=== PATIENT | female | born 1975 | race Two or more races ===

== ENCOUNTER 2018-04-25 13:29 | Emergency (ER) | payer SELFPAY ==
[~2018-04-25] VITALS: Ht 165.1 cm; Wt 68.0 kg
[2018-04-25 13:45] VITALS: BP 141/87
[2018-04-25] MEDS ORDERED: Acetaminophen 500mg (ES) tab ORAL ONE (14:00)
--- NOTE | 2018-04-25 14:15 | Emergency Room Report ---
History of Present Illness General Chief Complaint: Flu Like Symptoms Source: Patient Present Illness HPI 42-year-old female patient presents ER complaining of numbness in her fingers of her left hand and in her left lower extremity for the past 4 days. reports numbness in her left index finger and pinky finger, denies radiation of symptoms. Reports history of similar symptoms several years ago. Denies loss of range of motion. Denies history of diabetes. Denies fever, chest pain, shortness breath, abdominal pain. Denies recent injury or trauma. Also states that she had some palpitations about an hour ago, denies palpitations at this time. Denies fever, chest pain, shortness of breath. Denies other acute symptoms. Reports right-hand dominant. Denies difficulty with walking.contrary to triage note, patient does not complain of generalized body pain. Allergies: Coded Allergies: No Known Allergies (Unverified , 04/25/18) Patient History Past Medical History: see triage record Reviewed Nursing Documentation: PMH: Agreed; PSxH: Agreed Nursing Documentation-PMH Past Medical History: No Stated History Review of Systems All Other Systems: negative except mentioned in HPI Physical Exam Vital Signs Date Time Temp Pulse Resp B/P (MAP) Pulse Ox O2 Delivery O2 Flow Rate FiO2 04/25/18 13:32 99.0 83 16 152/98 98 Room Air 99.0 Sp02 EP Interpretation: reviewed, normal General Appearance: well appearing, no apparent distress, alert, GCS 15, non- toxic Head: normocephalic, atraumatic Eyes: bilateral eye normal inspection, bilateral eye PERRL ENT: hearing grossly normal, normal pharynx, no angioedema, normal voice, uvula midline, moist mucus membranes Neck: full range of motion Respiratory: lungs clear, normal breath sounds, no rhonchi, no respiratory distress, no accessory muscle use, no wheezing, speaking full sentences Cardiovascular #1: regular rate, rhythm, no edema Cardiovascular #2: 2+ radial (R), 2+ radial (L), 2+ dorsalis pedis (R), 2+ dorsalis pedis (L) Gastrointestinal: non tender, soft, no mass, non-distended, no guarding, no rebound Genitourinary: no CVA tenderness Musculoskeletal: back normal, digits/nails normal, gait/station normal, normal range of motion, non-tender, no calf tenderness, Bolivar's Sign negative, other - NVI, negative Phalen, negative Tinel, negative Adson; AIN, PIN, radial nerves intact, no snuffbox tenderness Neurologic: alert, oriented x3, responsive, motor strength/tone normal, sensory intact Psychiatric: mood/affect normal Skin: no rash Lymphatic: no adenopathy Medical Decision Making PA Attestation Dr. Parker is my supervising Physician whom patient management has been discussed with. Diagnostic Impression: Primary Impression: Numbness ER Course Pt. presents to the ED c/o numbness in fingers and lower extremity. Ddx considered but are not limited to sprain, strain, nerve irritation, carpal tunnel, diabetes, peripheral neuropathy, peripheral vascular disease. no calf pain or swelling, negative Bolivar, low suspicion for DVT. Vital signs: are WNL, pt. is afebrile, blood pressure mildly elevated. Blood pressure mildly elevated at this time, will continue to monitor. Denies chest pain, shortness of breath, vision changes, does not require acute intervention at ER at this time. Follow with primary care provider discuss further treatment and referral. Advised on low-sodium diet, advised on diet and exercise.. ER COURSE: EKG shows no ST elevations or arrhythmias. Chest x-ray negative for acute disease. low suspicion for NH, does not require cardiac workup at this time. X-ray right hand negative for acute disease per the preliminary reading. Due to chronicity of symptoms, patient does not require acute workup in the ER at this time. Follow-up with primary care provider to discuss evaluation for possible diabetes, peripheral neuropathy, nerve irritation. Discuss need for MRI imaging and nerve conduction testing. Declined splints. Denies symptoms at this time. Reports OK for discharge. Will followup outpatient. patient states with follow-up with primary care provider. DISCHARGE: Rx provided for Tylenol At this time pt is stable for d/c to home. Patient is resting comfortably, in no acute distress, nontoxic appearing, talking without difficulty. Patient to take medications as instructed Will provide with patient care instructions and any necessary prescriptions. Care plan and follow-up instructions provided. Patient instructed to follow-up with primary care provider in 3 - 5 days. Patient questions asked and answered. Patient reports understanding and agreement to treatment plan. ER precautions given. Patient instructed to return to ER immediately for any new or worsening of symptoms including but not limited to increasing SOB, persistent fever, chest pain, intractable vomiting. - Please note that this Emergency Department Report was dictated using [employer] admin technology software, occasionally this can lead to erroneous entry secondary to interpretation by the dictation equipment. EKG Diagnostic Results Rate: normal Rhythm: NSR ST Segments: no acute changes ASA given to the pt in ED: No PA Scribe Text Mamadou Beltre PA-C Rhythm Strip Diag. Results EP Interpretation: yes Rate: 67 Rhythm: NSR, no PVC's, no ectopy PA Scribe Text Mamadou Beltre PA-C Chest X-Ray Diagnostic Results Chest X-Ray Diagnostic Results : Chest X-Ray Ordered: Yes # of Views/Limited/Complete: 1 View Indication: Chest Pain EP Interpretation: Yes PA Xray: Interpretation reviewed, by supervising MD, and agrees with findings. Interpretation: no consolidation, no effusion, no pneumothorax, no acute cardiopulmonary disease Impression: No acute disease WHITNEY Scribe Rudy Beltre PA-C Other X-Ray Diagnostic Results Other X-Ray Diagnostic Results : X-Ray ordered: left hand # of Views/Limited Vs Complete: 3 View Indication: Pain EP Interpretation: Yes PA Xray: Interpretation reviewed, by supervising MD, and agrees with findings. Interpretation: no dislocation, no soft tissue swelling, no fractures Impression: No acute disease PA Scribe Text Mamadou Beltre PA-C Last Vital Signs Date Time Temp Pulse Resp B/P (MAP) Pulse Ox O2 Delivery O2 Flow Rate FiO2 04/25/18 13:32 99.0 83 16 152/98 98 Room Air 99.0 Disposition: HOME, SELF-CARE Condition: Stable Scripts Acetaminophen* (TYLENOL EXTRA STRENGTH*) 500 Mg Tablet 500 MG ORAL Q8H PRN for Prn Headache/Temp > 101, #30 TAB 0 Refills Prov: Calin Beltre 04/25/18 Patient Instructions: Neuropathic Pain, Palpitations, [id number], Peripheral Neuropathy, Pinched Nerve Additional Instructions: Patient instructed to follow up with primary care provider. Discuss cardiac referral and workup with labs as needed for palpitations. Discuss further referral to orthopedics and neurologist as needed. Patient instructed on RICE method: rest, ice, compression, elevation. Patient instructed to WBAT. Take medications as directed. Patient questions asked and answered. ER precautions given, patient instructed to return to ER immediately for any new or worsening of symptoms. Calin Beltre Apr 25, 2018 14:15
[2018-04-25] MEDS ORDERED: TYLENOL EXTRA500 MG ORAL (14:37)
[2018-04-25 15:20] VITALS: BP 152/98
--- NOTE | 2018-04-26 08:36 | Diagnostic Imaging Report ---
Indication: Chest pain Technique: One view of the chest Comparison: none Findings: Lungs and pleural spaces are clear. Heart size is normal Impression: No acute process
--- NOTE | 2018-04-26 08:37 | Diagnostic Imaging Report ---
Indication: Pain, numbness in fingers Technique: 3 views left hand Comparison: none Findings: No acute fractures. No dislocations. The joint spaces are preserved. Impression: Negative
== END 2018-04-25 16:31 | disposition home or self-care (01) ==
LOC: EDBD 13:29 → EMR 14:02
DX: R20.0 Anesthesia of skin (principal)
CPT/HCPCS: 71045; 93005; 99284